=== PATIENT | female | born 1995 | race African-American/Black ===

== ENCOUNTER 2022-01-20 10:18 | Observation (INO) ==
[2022-01-20 12:02] LABS: Basophils # 0.1 10*3/uL (0.0-0.2); Basophils % 0.5 % (0.0-0.8); Eosinophils # 0.2 10*3/uL (0.0-0.87); Eosinophils % 1.8 % (0.00-10.9); Hematocrit 40.7 VOL% (35.7-47.0); Hemoglobin 12.8 GM/DL (12.0-16.0); Immature Granulocytes % 0.6 %; Immature Granulocytes Absolute 0.06 #; Lymphocytes # 3.3 10*3/uL (1.4-4.0); Lymphocytes % 33.5 % (21.3-54.2); Mean Corpuscular HGB Conc 31.4 GM/DL (32-36); Mean Corpuscular Volume 87.3 FL (87-102); Mean Platelet Volume 9.8 FL (9.6-12.0); Monocytes # 0.6 10*3/uL (0.11-0.8); Monocytes % 6.2 % (1.7-12.7); Neutrophils % 57.4 % (38.7-73.9); Platelet Count 402 T/CUMM (130-400); Red Blood Count 4.66 MC/CUMM (3.8-5.5); Red Cell Distribution Width 16.8 % (9.3-17.3); White Blood Count 9.8 T/CUMM (4-12)
[2022-01-20 12:10] LABS: Mucus,Urine Occasional /LPF (Occasional); RBC,Urine 83 /HPF (0-4); Squamous Epithelial Cell,Urine Few /HPF (0-10)
[2022-01-20 12:11] LABS: Bilirubin,Urine Negative (Negative); Blood, Urine Large mg/dL (Negative); Glucose,Urine (UA) Negative (Negative); Ketones,Urine Negative (Negative); Nitrite,Urine Negative (Negative); Protein,Urine Trace mg/dL (Negative); Urine Appearance Cloudy (Clear); Urine Color Yellow (Yellow); Urine Urobilinogen 0.2 eU/dL (<2.0); Urine pH 7.5 (4.5-8.0)
[2022-01-20 12:22] LABS: Alanine Aminotransferase 17 U/L (13-56); Albumin 2.8 G/DL (3.4-5.0); Alkaline Phosphatase 87 U/L (45-117); Aspartate Amino Transferase 14 U/L (0-37); Bilirubin,Total < 0.39 MG/DL (0.20-1.00); Blood Urea Nitrogen 4 MG/DL (7-18); Calcium 9.5 MG/DL (8.5-10.1); Carbon Dioxide 23 MMOL/L (21-32); Chloride 107 MMOL/L (98-107); Glucose 89 MG/DL (74-106); Osmolality,Calculated 268.8 MOS/KG (273-304); Potassium 3.9 MMOL/L (3.5-5.1); Sodium 137 MMOL/L (136-145); Total Protein 8.1 G/DL (6.4-8.2)
[2022-01-20] MEDS ORDERED: ONDANSETRON 4 MG/2 ML VIAL IV PRN (13:17)
[2022-01-20] MEDS ORDERED: MAGNESIUM HYDROXIDE SUSP 30 ML UDCUP PO PRN (13:17)
[2022-01-20] MEDS ORDERED: ACETAMINOPHEN 325 MG TABLET PO PRN (13:17)
[2022-01-20] MEDS ORDERED: OXYTOCIN/LR 20 UNIT/1,000 ML BAG IV ONE (21:59)
[2022-01-20] MEDS ORDERED: MEPERIDINE 50 MG/1 ML VIAL IV PRN (22:13)
[2022-01-20] MEDS ORDERED: LACTATED RINGERS 1,000 ML IV SCH (22:30)
[2022-01-20] MEDS ORDERED: BUTORPHANOL 2 MG/ML VIAL IV SCH (22:30)
[2022-01-20] MEDS ORDERED: miSOPROStoL 200 MCG TABLET PO ONE (22:59)
[2022-01-21] MEDS ORDERED: OXYTOCIN/LR 20 UNIT/1,000 ML BAG IV ONE (01:01)
[2022-01-21] MEDS ORDERED: IBUPROFEN 800 MG TABLET PO PRN (02:11)
[2022-01-21 04:55] LABS: Basophils % 0.2 % (0.0-0.8); Eosinophils % 0.2 % (0.00-10.9); Hematocrit 35.2 VOL% (35.7-47.0); Hemoglobin 11.1 GM/DL (12.0-16.0); Immature Granulocytes % 0.7 %; Immature Granulocytes Absolute 0.12 #; Lymphocytes # 2.9 10*3/uL (1.4-4.0); Lymphocytes % 17.9 % (21.3-54.2); Mean Corpuscular HGB Conc 31.5 GM/DL (32-36); Mean Corpuscular Volume 86.7 FL (87-102); Monocytes # 0.7 10*3/uL (0.11-0.8); Monocytes % 4.2 % (1.7-12.7); Neutrophils % 76.8 % (38.7-73.9); Platelet Count 381 T/CUMM (130-400); Red Blood Count 4.06 MC/CUMM (3.8-5.5); Red Cell Distribution Width 16.4 % (9.3-17.3); White Blood Count 16.2 T/CUMM (4-12)
[2022-01-21] MEDS ORDERED: DOCUSATE SODIUM 100 MG CAPSULE PO PRN (08:38)
[2022-01-21] MEDS ORDERED: MULTIVITAMIN (PRENATAL) TABLET PO SCH (09:00)
[2022-01-21 11:28] VITALS: BP 109/64
[2022-01-21] MEDS ORDERED: RHO(D) IMMUNE GLOBULIN 300 MCG SYRINGE IM ONE (13:15)
== END 2022-01-21 15:00 | disposition home or self-care (01) ==
LOC: EDBD → EDUNIT# → N.ED 10:18 → N.EDINP 10:18 → N.OB 13:35
PROVIDERS: ADMIT Obstetrics & Gynecology; ATTEND Obstetrics & Gynecology